=== PATIENT | male | born 1935 | race Caucasian/White ===

== ENCOUNTER 2017-03-10 15:03 | Inpatient (IN) | payer BC ==
[~2017-03-10] VITALS: Ht 177.8 cm; Wt 82.2 kg
[2017-03-10 15:58] LABS: EOSINOPHIL (%) 1.7 % (0-5); EOSINOPHIL COUNT 0.2 K/uL (0-0.3); HEMATOCRIT 28.9 % (38.0-50.0); IMMATURE GRANULOCYTE (%) 0.5 % (0.0-0.7); IMMATURE GRANULOCYTE COUNT 0.1 K/uL; INSTRUMENT ABS NEUTROPHIL CT 8.2 K/uL; LYMPHOCYTE COUNT 1.1 K/uL (1.0-2.8); MCH 28.2 PG (29.0-34.0); MCHC 31.8 G/DL (30.0-36.0); MCV 88.7 FL (86-99); MEAN PLAT.VOLUME 9.3 uM^3 (9.0-12.4); MONOCYTE (%) 8.6 % (3-12); MONOCYTE COUNT 0.9 K/uL (0-0.8); NEUTROPHIL (%) 78.7 % (45-76); NEUTROPHIL COUNT 8.2 K/uL (1.8-6.4); PLATELET COUNT 320 K/uL (156-360); RBC DIS.WIDTH-CV 14.9 % (11.8-14.6); RBC DIS.WIDTH-SD 48.2 % (39-53); RED BLOOD COUNT 3.26 M/uL (4.00-5.50); WHITE BLOOD COUNT 10.4 K/uL (4.1-10.2)
[2017-03-10 16:06] LABS: CHLORIDE 109 mEq/L (99-109); POTASSIUM 4.2 mEq/L (3.7-5.4); SODIUM 140 mEq/L (136-147)
[2017-03-10 16:08] LABS: GLUCOSE 130 mg/dL (70-99)
[2017-03-10 16:10] LABS: ANION GAP 10 MEQ/L (2-14)
[2017-03-10 16:12] LABS: GFR ESTIMATE (CALCULATED) > 59 mL/min/
[2017-03-10 16:13] LABS: UREA NITROGEN (BUN) 33 mg/dL (9-23)
[2017-03-10 19:10] LABS: ADD MIUA? YES; BILIRUBIN NEGATIVE; BLOOD SMALL; COLOR YELLOW ((YELLOW)); GLUCOSE (STRIP) NEGATIVE; KETONES NEGATIVE; LEUKOCYTES LARGE; NITRITE POSITIVE; PROTEIN (STRIP) 30; UROBILINOGEN 0.2 MG/DL (0.2-1.0)
[2017-03-10 19:17] LABS: BACTERIA RARE /HPF; CALCIUM OXALATE CRYSTALS 1+ /HPF; EPITHELIAL CELLS NONE SEEN /HPF; MUCUS TRACE /LPF; UCUL ADDED? YES; WHITE BLOOD CELLS TNTC /HPF (0-5)
[2017-03-10] MEDS ORDERED: ALFUZOSIN HCL10 MG PO (21:31)
[2017-03-10] MEDS ORDERED: ATIVAN0.5 MG PO (21:32)
[2017-03-10] MEDS ORDERED: LO-DOSE ASPIRIN81 M2 PO (21:32)
[2017-03-10] MEDS ORDERED: CARDIZEM30 MG PO (21:33)
[2017-03-10] MEDS ORDERED: FINASTERIDE5 MG PO (21:34)
[2017-03-10] MEDS ORDERED: FUROSEMIDE20 MG PO (21:34)
[2017-03-10] MEDS ORDERED: GABAPENTIN100 MG PO (21:35)
[2017-03-10] MEDS ORDERED: TOPIRAMATE100 MG PO (21:36)
[2017-03-10] MEDS ORDERED: WARFARIN SODIUM5 MG PO (21:36)
[2017-03-10] MEDS ORDERED: TRAMADOL HCL50 MG PO (21:37)
[2017-03-10] MEDS ORDERED: ASCORBIC ACID100 MG PO (21:38)
[2017-03-10] MEDS ORDERED: CALCIUM600 M1 PO (21:39)
[2017-03-10] MEDS ORDERED: COLACE100 MG PO (21:40)
[2017-03-10] MEDS ORDERED: LOVAZA1 GM PO (21:41)
[2017-03-10] MEDS ORDERED: CYANOCOBALAM1000 MCG PO (21:42)
[2017-03-10] MEDS ORDERED: VITAMIN E100 UNIT PO (21:42)
[2017-03-10 22:48] VITALS: BP 118/74
[2017-03-10 23:36] VITALS: BP 118/74
[2017-03-10 23:38] LABS: INTER. NORMALIZED RATIO 2.8; PROTHROMBIN TIME 31.3 SEC (10.2-12.9)
[2017-03-11 03:57] VITALS: BP 103/65
[2017-03-11 05:53] LABS: EOSINOPHIL (%) 1.5 % (0-5); EOSINOPHIL COUNT 0.1 K/uL (0-0.3); HEMATOCRIT 26.5 % (38.0-50.0); IMMATURE GRANULOCYTE (%) 0.5 % (0.0-0.7); IMMATURE GRANULOCYTE COUNT 0.1 K/uL; INSTRUMENT ABS NEUTROPHIL CT 7.1 K/uL; LYMPHOCYTE COUNT 1.1 K/uL (1.0-2.8); MCH 27.7 PG (29.0-34.0); MCHC 31.7 G/DL (30.0-36.0); MCV 87.5 FL (86-99); MEAN PLAT.VOLUME 9.2 uM^3 (9.0-12.4); MONOCYTE (%) 9.9 % (3-12); MONOCYTE COUNT 0.9 K/uL (0-0.8); NEUTROPHIL (%) 76.3 % (45-76); NEUTROPHIL COUNT 7.1 K/uL (1.8-6.4); PLATELET COUNT 306 K/uL (156-360); RBC DIS.WIDTH-SD 48.1 % (39-53); RED BLOOD COUNT 3.03 M/uL (4.00-5.50); WHITE BLOOD COUNT 9.3 K/uL (4.1-10.2)
[2017-03-11 06:03] LABS: CHLORIDE 110 mEq/L (99-109); INTER. NORMALIZED RATIO 2.7; POTASSIUM 3.7 mEq/L (3.7-5.4); PROTHROMBIN TIME 31.1 SEC (10.2-12.9); SODIUM 139 mEq/L (136-147)
[2017-03-11 06:06] LABS: GLUCOSE 113 mg/dL (70-99)
[2017-03-11 06:07] LABS: ANION GAP 8 MEQ/L (2-14); TOTAL BILIRUBIN 0.4 mg/dL (0.0-1.0)
[2017-03-11 06:09] LABS: ALKALINE PHOSPHATASE 57 IU/L (3-129); GFR ESTIMATE (CALCULATED) > 59 mL/min/
[2017-03-11 06:10] LABS: UREA NITROGEN (BUN) 27 mg/dL (9-23)
[2017-03-11 06:11] LABS: DIRECT BILIRUBIN 0.2 mg/dL (0.0-0.3)
[2017-03-11 07:07] LABS: Estimated Average Glucose 143 mg/dL (70-123); HEMOGLOBIN A1c (GLYCOHEMOGLOB) 6.6 % HGB (Below 5.7)
[2017-03-11 07:51] VITALS: BP 103/65
[2017-03-11 12:00] VITALS: BP 100/59
[2017-03-11 16:50] VITALS: BP 113/59
[2017-03-11 19:46] VITALS: BP 99/54
[2017-03-11 23:24] VITALS: BP 109/56
[2017-03-12 03:42] VITALS: BP 121/59
[2017-03-12 06:43] LABS: EOSINOPHIL (%) 3.1 % (0-5); EOSINOPHIL COUNT 0.3 K/uL (0-0.3); HEMATOCRIT 26.6 % (38.0-50.0); IMMATURE GRANULOCYTE (%) 0.3 % (0.0-0.7); INSTRUMENT ABS NEUTROPHIL CT 6.8 K/uL; LYMPHOCYTE COUNT 0.9 K/uL (1.0-2.8); MCH 27.5 PG (29.0-34.0); MCHC 31.6 G/DL (30.0-36.0); MCV 87.2 FL (86-99); MEAN PLAT.VOLUME 9.2 uM^3 (9.0-12.4); MONOCYTE (%) 9.2 % (3-12); MONOCYTE COUNT 0.8 K/uL (0-0.8); NEUTROPHIL (%) 76.9 % (45-76); NEUTROPHIL COUNT 6.8 K/uL (1.8-6.4); PLATELET COUNT 309 K/uL (156-360); RBC DIS.WIDTH-CV 15.2 % (11.8-14.6); RBC DIS.WIDTH-SD 48.6 % (39-53); RED BLOOD COUNT 3.05 M/uL (4.00-5.50); WHITE BLOOD COUNT 8.8 K/uL (4.1-10.2)
[2017-03-12 07:10] LABS: ANION GAP 7 MEQ/L (2-14); CHLORIDE 109 MEQ/L (99-109); GFR ESTIMATE (CALCULATED) > 59 mL/min/; GLUCOSE 136 mg/dL (70-99); SAMPLE HEMOLYSIS CHECK 0; SAMPLE ICTERIC CHECK 0; SAMPLE LIPEMIA CHECK 0; SODIUM 139 MEQ/L (136-147); UREA NITROGEN (BUN) 29 mg/dL (9-23)
[2017-03-12 09:29] VITALS: BP 108/55
[2017-03-12 17:24] VITALS: BP 105/57
[2017-03-12 17:30] VITALS: BP 97/54
[2017-03-12 19:21] VITALS: BP 107/56
[2017-03-12 23:31] VITALS: BP 126/67
[2017-03-13 07:10] VITALS: BP 125/63
[2017-03-13 07:16] LABS: INTER. NORMALIZED RATIO 3.9; PROTHROMBIN TIME 44.4 SEC (10.2-12.9)
[2017-03-13 16:56] VITALS: BP 112/55
[2017-03-13 23:23] VITALS: BP 113/63
[2017-03-14 06:46] LABS: INTER. NORMALIZED RATIO 3.6; PROTHROMBIN TIME 41.6 SEC (10.2-12.9)
[2017-03-14 06:52] LABS: HEMATOCRIT 24.5 % (38.0-50.0); MCH 27.8 PG (29.0-34.0); MCHC 31.8 G/DL (30.0-36.0); MCV 87.2 FL (86-99); MEAN PLAT.VOLUME 9.4 uM^3 (9.0-12.4); PLATELET COUNT 294 K/uL (156-360); RBC DIS.WIDTH-CV 15.1 % (11.8-14.6); RBC DIS.WIDTH-SD 48.6 % (39-53); RED BLOOD COUNT 2.81 M/uL (4.00-5.50); WHITE BLOOD COUNT 8.5 K/uL (4.1-10.2)
[2017-03-14 07:10] VITALS: BP 121/69
[2017-03-14 07:16] LABS: ANION GAP 7 MEQ/L (2-14); CHLORIDE 110 MEQ/L (99-109); GFR ESTIMATE (CALCULATED) > 59 mL/min/; GLUCOSE 106 mg/dL (70-99); SAMPLE HEMOLYSIS CHECK 0; SAMPLE ICTERIC CHECK 0; SAMPLE LIPEMIA CHECK 0; SODIUM 139 MEQ/L (136-147); UREA NITROGEN (BUN) 22 mg/dL (9-23)
[2017-03-14] MEDS ORDERED: CEFEPIME HCL2 GM IM (12:44)
[2017-03-14] MEDS ORDERED: FLAGYL500 MG PO (12:45)
[2017-03-14] MEDS ORDERED: VANCOMYCIN1.25 GM/25 IV (12:45)
== END 2017-03-14 13:29 | disposition short-term general hospital (02) | DRG 603 ==
LOC: EME 15:03 → EDOF 21:29 → 2EAST 21:29 → ENRESERV 21:32 → EDOF 03-11 00:53 → ENRESERV 03-11 10:27 → 2EAST 03-11 11:44
PROVIDERS: Family Medicine; Hospitalist; Internal Medicine
DX: L03.116 Cellulitis of left lower limb (principal); E11.52 Type 2 diabetes mellitus with diabetic peripheral angiopathy with gangrene; E11.42 Type 2 diabetes mellitus with diabetic polyneuropathy; E11.621 Type 2 diabetes mellitus with foot ulcer; L97.529 Non-pressure chronic ulcer of other part of left foot with unspecified severity; L89.620 Pressure ulcer of left heel, unstageable; I42.9 Cardiomyopathy, unspecified; E87.1 Hypo-osmolality and hyponatremia; I10 Essential (primary) hypertension; L03.115 Cellulitis of right lower limb; I25.10 Atherosclerotic heart disease of native coronary artery without angina pectoris; I25.2 Old myocardial infarction; G47.33 Obstructive sleep apnea (adult) (pediatric); E78.5 Hyperlipidemia, unspecified; D63.8 Anemia in other chronic diseases classified elsewhere; I67.2 Cerebral atherosclerosis; K21.9 Gastro-esophageal reflux disease without esophagitis; K58.9 Irritable bowel syndrome, unspecified; E53.8 Deficiency of other specified B group vitamins; N40.1 Benign prostatic hyperplasia with lower urinary tract symptoms; R33.8 Other retention of urine; G89.29 Other chronic pain; S80.822A Blister (nonthermal), left lower leg, initial encounter; X58.XXXA Exposure to other specified factors, initial encounter; Z66 Do not resuscitate; Z98.890 Other specified postprocedural states; Z86.718 Personal history of other venous thrombosis and embolism; Z86.79 Personal history of other diseases of the circulatory system; Z95.1 Presence of aortocoronary bypass graft; Z95.5 Presence of coronary angioplasty implant and graft
CPT/HCPCS: 71020; 80048; 80076; 80202; 81003; 83036; 83605; 85025; 85027; 85610; 86850; 86900; 86901; 87040; 87070; 87075; 87077; 87086; 87186; 87205; 94660; 99281; 99285; J0692; J0696; J3370; J7030